=== PATIENT | female | born 1950 ===

== ENCOUNTER 2024-04-20 11:24 | Outpatient (REF) | payer MEDICARE, OTHER, SELFPAY ==
[2024-04-20 11:40] LABS: MANUAL DIFF FLAG NO
[2024-04-20 12:00] LABS: Basophils Percent Auto 0.6 % (0-2); Eosinophils Absolute Auto 0.2 X10*3/uL (0.0-0.4); Eosinophils Percent Auto 3.2 % (0-4); Hematocrit 44.3 % (37.0-47.0); Hemoglobin 15.2 g/dl (12.0-16.0); Imm Gran Abs Auto 0.01 X10*3/uL (0.00-0.03); Imm Gran Pct Auto 0.1 % (0.0-0.4); Lymphocytes Absolute Auto 2.8 X10*3/uL (1.2-4.9); Lymphocytes Percent Auto 40.4 % (20-40); Mean Corpuscular HGB Conc 34.3 g/dl (31.0-35.0); Mean Corpuscular Volume 87.4 fL (80.0-98.0); Mean Platelet Volume 9.4 fL (9.4-12.3); Monocytes Absolute Auto 0.5 X10*3/uL (0.1-1.2); Monocytes Percent Auto 6.9 % (2-11); Neutrophils Absolute Auto 3.4 x10*3/uL (2.0-8.3); Neutrophils Percent Auto 48.8 % (45-73); Platelet Count 235 X10*3/uL (160-400); Red Blood Count 5.07 X10*6/uL (4.20-5.50); Red Cell Distribution Width 13.7 % (11.0-16.0)
[2024-04-20 12:09] LABS: Estimated Average Glucose 140 mg/dL; Hemoglobin A1c % 6.5 % (<6.0)
[2024-04-20 12:42] LABS: Alanine Aminotransferase 15 U/L (0-31); Albumin Level 4.2 g/dL (3.5-5.0); Alkaline Phosphatase 119 U/L (39-117); Anion Gap 14 (12-20); Aspartate Amino Transferase 21 U/L (5-31); Bilirubin Total 0.6 mg/dL (0.0-1.0); Blood Urea Nitrogen 17 mg/dL (9-16); Calcium 9.9 mg/dL (8.4-10.2); Carbon Dioxide 27 mmol/L (22-29); Chloride 106 mmol/L (96-108); Cholesterol 131 mg/dL (<200); Estimated Glomerular Filt Rate 52; Glucose Random 148 mg/dL (60-115); HDL Cholesterol 47 mg/dL (>40); LDL Cholesterol Calculated 62 mg/dL (<100); Potassium 3.8 mmol/L (3.3-5.1); Sodium 143 mmol/L (135-145); Total Protein 7.1 g/dL (6.5-8.0); Triglycerides 113 mg/dL (<150)
[2024-04-20 13:06] LABS: Creatinine Urine 191.33 mg/dL; Microalbum/Creatinine Ratio Ur 13.5 ug/mg cr (<30)
== END 2024-04-20 11:25 | disposition home or self-care (01) ==
LOC: HO.LAB 11:24
PROVIDERS: PCP Internal Medicine; Visit Provider Internal Medicine
DX: Z00.00 Encounter for general adult medical examination without abnormal findings (principal); E11.9 Type 2 diabetes mellitus without complications; Z13.228 Encounter for screening for other metabolic disorders
CPT/HCPCS: 36415; 80053; 80061; 82043; 82570; 83036; 85025

== ENCOUNTER 2024-05-16 14:22 | Outpatient (AMB) | payer MEDICARE, OTHER, SELFPAY ==
--- NOTE | 2024-05-16 14:18 | A.OFFPC_ITS ---
Vital Signs 05/16/24 14:30 Weight 226 lb 4 oz BP 108/64 Blood Pressure Location Lt brachial Position Sitting Respiration 18 Pulse 87 Pulse Source Pulse Oximeter Temp 97.2 F Temp Source Oral Pulse Oximetry (%) 96 Oxygen Delivery Method Room Air Intake Visit Reasons: WEIGHER AND CHARGER Annual PE Req. / A1C F/U Intake Note: New patient visit. A1c 6.5 on 04/20/24 Vulnerability Assessment Analyst Required: No Allergies codeine Allergy (Severe, Verified 05/16/24 14:41) n/v doxycycline Allergy (Unknown, Verified 05/16/24 14:41) Hives nitrofurantoin [From Macrodantin] Allergy (Unknown, Verified 05/16/24 14:41) Hives Penicillins Allergy (Unknown, Verified 05/16/24 14:41) Hives Sulfa (Sulfonamide Antibiotics) Allergy (Unknown, Verified 05/16/24 14:41) Hives tetracycline Allergy (Unknown, Verified 05/16/24 14:41) Unknown bee stings Allergy (Unknown, Uncoded 05/16/24 14:41) Unknown Tobacco use date assessed: 05/16/24 Fall risk assessment: 2 + Falls in past year Last assessed Fall Risk: 05/16/24 Dental Screening Dental Screen Date: 05/16/24 Did you have a dental visit in the last 12 months?: No Did you have a dental problem in the last 6 months where you did not have access to dental care?: No Was dental information given to patient?: Patient has dentist HPI HPI Comments History of Present Illness Details The patient is a 74 year old female with a past medical history of hyperlipidemia, hypertension, diabetes, thyroid nodule, GERD, ?barretts presenting for follow up Diabetes: A1 6.5. Intolerant to metformin, ozempic. Doing well on actos without SE. CV: On imdur, furosemide, amlodipine, atorvastatin. Denies chest pain, palpitations. GI: History of Barretts. Follows GI. Insomnia: On zolpidemi, trazodone. Failed lunesta Ongoing low back pain. +bilateral foot pain. Right shoulder pain following fall. Following with [facility] Colon 3 year 05/18/2024, 08/12-[facility] Medical History (Updated 05/16/24 @ 14:22 by Helga Farrar CMA) Vitamin D deficiency Uninodular goiter Type 2 diabetes mellitus Polyp of sigmoid colon Olecranon bursitis, left elbow Obesity, Class I, BMI 30-34.9 Nicotine dependence Insomnia HTN (hypertension) Hypercholesteremia Gastroesophageal reflux disease Gallstones Fibromyalgia Chronic obstructive lung disease Yo's esophagus Acquired spondylolisthesis Family History (Updated 05/16/24 @ 14:36 by Helga Farrar CMA) Brother Substance use Mother Multiple myeloma TIA (transient ischemic attack) Father TIA (transient ischemic attack) CAD (coronary artery disease) Sister Hepatitis Social History (Updated 05/16/24 @ 14:30 by Helga Farrar CMA) Housing: House Patient Tobacco Use Status: Current someday Tobacco user Tobacco use type: Cigarette Cigarette Packs Per Day: 1 Years Smoked: 30 e-Cigarette/Vaping Use: Never Used Second Hand Smoke Exposure: No Substance Use Type: Marijuana service: Yes Current occupational status: employed and retired Cognitive needs: No Hearing needs: No Vision needs: Yes (glasses) Questionnaire AUDIT C Alcohol Use Questionnaire (AUDIT-C) 1. How often do you have a drink containing alcohol?: Never 3. How often do you have six or more drinks on one occasion?: Never Total Score: 0 Physical exam (Primary Care) Vital Signs: Last Vital Signs Temp 97.2 F 05/16/24 14:30 Pulse 87 05/16/24 14:30 Resp 18 05/16/24 14:30 BP 108/64 05/16/24 14:30 Pulse Ox 96 05/16/24 14:30 Oxygen Delivery Method Room Air 05/16/24 14:30 Tobacco/Smoking Status: Tobacco use Status Tobacco use date assessed 05/16/24 05/16/24 14:41 Patient Tobacco Use Status Current someday Tobacco 05/16/24 14:41 Tobacco use type Cigarette 05/16/24 14:41 e-Cigarette/Vaping Use Never Used 05/16/24 14:41 Assessment and Plan Assessment & Plan Medications: New duloxetine then increase to 60mg daily 30 mg PO DAILY 7 caps 0RF duloxetine 60 mg PO DAILY 90 caps 3RF 90 days loratadine (Claritin) 10 mg PO DAILY 90 tabs 3RF ciprofloxacin HCl (Cipro) 500 mg PO BID 14 tabs 0RF Refilled zolpidem 10 mg PO ONCE 30 tabs 0RF 30 days Coding Level of Care Code Est Pt Level 4 (26509)
[2024-05-16 14:30] VITALS: BP 108/64; PULSE 87; RESP 18; TEMP 36.2; O2SAT 96
== END 2024-05-16 15:31 | disposition home or self-care (01) ==
PROVIDERS: PCP Internal Medicine; Visit Provider Internal Medicine
DX: E11.9 Type 2 diabetes mellitus without complications (principal); G47.00 Insomnia, unspecified; I10 Essential (primary) hypertension
CPT/HCPCS: 99214

== ENCOUNTER 2024-08-25 13:37 | Outpatient (AMB) | payer MEDICARE, OTHER, SELFPAY ==
--- NOTE | 2024-08-25 13:51 | A.OFFPC_ITS ---
Vital Signs 08/25/24 13:56 Height 5 ft 2 in Weight 137 lb 3 oz BMI 25.1 BP 112/70 Blood Pressure Location Lt brachial Position Sitting Pulse 93 Pulse Source Pulse Oximeter Pulse Oximetry (%) 96 Oxygen Delivery Method Room Air Intake Visit Reasons: FOLLOW UP Blood work Intake Note: Follow up blood work. Sleep medicine is not working. Allergies codeine Allergy (Severe, Verified 08/25/24 13:51) n/v doxycycline Allergy (Unknown, Verified 08/25/24 13:51) Hives nitrofurantoin [From Macrodantin] Allergy (Unknown, Verified 08/25/24 13:51) Hives Penicillins Allergy (Unknown, Verified 08/25/24 13:51) Hives Sulfa (Sulfonamide Antibiotics) Allergy (Unknown, Verified 08/25/24 13:51) Hives tetracycline Allergy (Unknown, Verified 08/25/24 13:51) Unknown bee stings Allergy (Unknown, Uncoded 08/25/24 13:51) Unknown Tobacco use date assessed: 05/16/24 Dental Screening Dental Screen Date: 05/16/24 HPI HPI Comments History of Present Illness Details The patient is a 74 year old female with a past medical history of hyperlipidemia, hypertension, diabetes, thyroid nodule, GERD, ?barretts presenting for follow up Diabetes: A1 6.5. Intolerant to metformin, ozempic. Doing well on actos without SE. CV: On imdur, furosemide, amlodipine, atorvastatin. Denies chest pain, palpitations. GI: History of Barretts. Follows [facility]. Insomnia: On zolpidem, trazodone. Failed lunesta Ongoing low back pain. +bilateral foot pain. Right shoulder pain following fall. Following with [facility] Colon 3 year 05/18/2024, 08/12-[facility] Mammo ROS CONSTITUTIONAL: Denies weight loss, fever and chills. HEENT: Denies changes in vision and hearing. RESPIRATORY: Denies SOB and cough. CV: Denies palpitations and CP GI: Denies abdominal pain, nausea, vomiting and diarrhea. : Denies dysuria and urinary frequency. MSK: Denies new myalgia and joint pain. SKIN: Denies rash and pruritus. NEUROLOGICAL: Denies headache PSYCHIATRIC: Denies recent changes in mood. PHYSICAL EXAM: GENERAL: Alert and oriented x 3. NAD EYES: EOMI. Anicteric. HENT: Moist mucous membranes. No scleral icterus. No cervical lymphadenopathy. LUNGS: Clear to auscultation bilaterally. CARDIOVASCULAR: Regular rate and rhythm. No murmur. No JVD. ABDOMEN: Soft, non-tender +bs EXTREMITIES: No edema. Non-tender. SKIN: No rashes or lesions. Warm. NEUROLOGIC: No focal neurological deficits. CN II-XII grossly intact PSYCHIATRIC: Cooperative. Appropriate mood and affect [facility] Medical History (Updated 09/17/24 @ 09:19 by Ranjana Arora MD) Vitamin D deficiency Uninodular goiter Type 2 diabetes mellitus Polyp of sigmoid colon Olecranon bursitis, left elbow Obesity, Class I, BMI 30-34.9 Nicotine dependence Insomnia HTN (hypertension) Hypercholesteremia Gastroesophageal reflux disease Gallstones Fibromyalgia Chronic obstructive lung disease Yo's esophagus Acquired spondylolisthesis Family History (Updated 05/16/24 @ 14:36 by Helga Farrar CMA) Brother Substance use Mother Multiple myeloma TIA (transient ischemic attack) Father TIA (transient ischemic attack) CAD (coronary artery disease) Sister Hepatitis Social History (Updated 05/16/24 @ 14:30 by Helga Farrar CMA) Housing: House Patient Tobacco Use Status: Current someday Tobacco user Tobacco use type: Cigarette Cigarette Packs Per Day: 1 Years Smoked: 30 e-Cigarette/Vaping Use: Never Used Second Hand Smoke Exposure: No Substance Use Type: Marijuana service: Yes Current occupational status: employed and retired Cognitive needs: No Hearing needs: No Vision needs: Yes (glasses) Questionnaire PHQ-9 Over the last 2 weeks, how often have you been bothered by any of the following problems? 1. Little interest or pleasure in doing things: not at all 2. Feeling down, depressed, or hopeless: not at all 3. Trouble falling or staying asleep, or sleeping too much: nearly every day 4. Feeling tired or having little energy: more than half the days 5. Poor appetite or overeating: more than half the days 6. Feeling bad about yourself - or that you are a failure or have let yourself or your family down: not at all 7. Trouble concentrating on things, such as reading the newspaper or watching television: several days 8. Moving or speaking so slowly that other people could have noticed. Or the opposite - being so fidgety or restless that you have been moving around a lot more than usual: not at all 9. Thoughts that you would be better off or of hurting yourself in some way: not at all Total score: 8 Depression Screening Interpretation: Positive Depression Screening Follow-up: Existing condition and Community Mental Health Worker F/U Depression Screening Done: Yes [id number] - PHQ-9 Billing: Yes Source: Developed by Drs. Matthew Peterson, Zoila Cifuentes, Eleuterio Quiros and colleagues, with an educational ely from [employer]. Thrive Questionnaire I am a: Patient What is your living situation today?: I have a steady place to live Within the past 12 months, did the food you bought not last and you didn't have the money to get more?: I choose not to answer this question Within the past 12 months, did you worry whether your food would run out before you got money to buy more?: Never true Do you have trouble paying for medicines?: Yes Do you have trouble getting transportation to medical appointments?: No Do you have trouble paying your heating and electricity bill?: Yes Do you have trouble taking care of your child, family member or friend?: No Do you have trouble with day-to-day activities such as bathing, preparing meals, shopping, managing finances, etc.?: No Are you currently unemployed and looking for a job?: No Are you interested in more education?: No Please select the resources that you would like help with: None Currently or been in a relationship where the following occur: No concerns reported THRIVE Score: 1 AUDIT C Alcohol Use Questionnaire (AUDIT-C) 1. How often do you have a drink containing alcohol?: Never Total Score: 0 KENDRA-7 AMB Questionnaire KENDRA-7 Feeling nervous, anxious, or on edge: 1 = Several days Not being able to stop or control worryin = Several days Worrying too much about different things: 1 = Several days Trouble relaxin = Nearly every day Being so restless that it is hard to sit still: 0 = Not at all Becoming easily annoyed or irritable: 0 = Not at all Feeling afraid as if something awful might happen: 0 = Not at all Total KENDRA-7 score (0-4 normal; 5-9 mild; 10-14 moderate; 15-21 severe): 6 Source: Developed by Drs. Matthew Peterson, Zoila Cifuentes, Eleuterio Quiros and colleagues, with an educational ely from [employer]. Physical exam (Primary Care) Vital Signs: Last Vital Signs Pulse 93 08/25/24 13:56 BP 112/70 08/25/24 13:56 Pulse Ox 96 08/25/24 13:56 Oxygen Delivery Method Room Air 08/25/24 13:56 BMI result Body Mass Index 25.1 Tobacco/Smoking Status: Tobacco use Status Tobacco use date assessed 05/16/24 08/25/24 13:53 Patient Tobacco Use Status Current someday Tobacco 08/25/24 13:53 Tobacco use type Cigarette 08/25/24 13:53 e-Cigarette/Vaping Use Never Used 08/25/24 13:53 PHQ-9: PHQ-9 Score PHQ-9: Total score 8 09/17/24 09:18 Depression Screening Interpretation: Positive Depression Screening Follow-up: Existing condition and Community Mental Health Worker F/U Currently or been in a relationship where the following occur: No concerns reported Coding Level of Care Code Est Pt Level 4 (41754) Diagnoses Type 2 diabetes mellitus without complication, without long-term current use of insulin E11.9 Diabetes mellitus complication status: without complication Diabetes mellitus [facility] insulin use: without [facility] use Diabetes mellitus type: type 2 Primary insomnia F51.01 Insomnia type: primary Assessment & Plan Assessment & Plan (1) Diabetes: Code(s): E11.9 - Type 2 diabetes mellitus without complications Category: Medical Qualifiers: Diabetes mellitus complication status: without complication Diabetes mellitus [facility] insulin use: without terminal computer operator use Diabetes mellitus type: type 2 Qualified Code(s): E11.9 - Type 2 diabetes mellitus without complications Plan: Well controlled on current medications. Continue annual eye exams. (2) Insomnia: Code(s): G47.00 - Insomnia, unspecified Category: Medical Qualifiers: Insomnia type: primary Qualified Code(s): F51.01 - Primary insomnia Plan: continue current medications Orders: Orders Hemoglobin A1c 08/25/24 E11.9 - Type 2 diabetes mellitus without complications Comprehensive Met. Panel 08/25/24 E11.9 - Type 2 diabetes mellitus without c omplications Lipid Panel 08/25/24 E11.9 - Type 2 diabetes mellitus without complications TSH reflex Free T4 08/25/24 E11.9 - Type 2 diabetes mellitus without complications Medications: New zolpidem (Ambien) USE good RX if not covered by insurance without [place] [id number] [facility] [id number] Member [id number] 10 mg PO BEDTIME PRN 30 tabs 0RF sleep Discontinued doxepin Discontinued Reason: Doctor's Order 6 mg PO BEDTIME PRN 90 tabs 3RF sleep
[2024-08-25 13:56] VITALS: BP 112/70; PULSE 93; O2SAT 96; BMI 25.1
== END 2024-08-25 14:22 | disposition home or self-care (01) ==
PROVIDERS: PCP Internal Medicine; Visit Provider Internal Medicine
DX: E11.9 Type 2 diabetes mellitus without complications (principal); F51.01 Primary insomnia

== ENCOUNTER → 2024-08-25 13:37 | Outpatient (BNVA) | payer MEDICARE, OTHER, SELFPAY | PROVIDERS: PCP Internal Medicine; Visit Provider Internal Medicine | DX: E11.9 Type 2 diabetes mellitus without complications (principal); F51.01 Primary insomnia; I10 Essential (primary) hypertension; E78.5 Hyperlipidemia, unspecified; Z79.899 Other long term (current) drug therapy | CPT/HCPCS: 99212 ==

== ENCOUNTER 2024-12-26 10:56 | Outpatient (REF) | payer MEDICARE, OTHER, SELFPAY ==
--- OUTSIDE RECORDS SUMMARY | 2024-12-26 11:52 | XMS_ITS | Clinical Summary ---
Author Organization [facility] Address [address] [place] [address] Care Team Providers Care Outside Salesperson Name Role Phone Ranjana Arora MD Primary Care Provider [phone] Surgical History Surgery Date Site/Laterality Comments APPENDECTOMY 1974 PROCEDURE: HISTORICAL APPENDECTOMY KNEE ARTHROSCOPY W/ DEBRIDEMENT PROCEDURE: MN ARTHRS KNEE DEBRIDEMENT/SHAVING ARTCLR CRTLG; COMMENT: 2 surgeries, right TUBAL LIGATION 1991 PROCEDURE: HISTORICAL TUBAL LIGATION OTHER SURGICAL HISTORY PROCEDURE: CHG ANGRPH CATH F-UP STD TCAT OTHER THAN THROMBYLSIS OTHER SURGICAL HISTORY PROCEDURE: [place] CAUTERY CERVIX CRYOCAUTERY INITIAL/REPEAT; COMMENT: in her 22 s Medical History Medical History Date Comments Generalized osteoarthrosis, involving hand 10/11/2006 DX:Generalized osteoarthrosi s, involving hand; COMMENT: hands, knees Chest pain, unspecified 10/28/2006 DX:Chest pain, unspecified; COMMENT: EST with Dr rCews with chest pressure at maximal exertion at 78% max pred hr with nl perfusion imaging and nl lv function and EF greater than 75% Essential hypertension, benign 10/11/2006 D X:Essential hypertension, benign Obstructive chronic bronchit is without exacerbation (CMS/HCC) 10/11/2006 DX:Obstructive chronic bronchitis without exacerbation (HCC); COMMENT: smokes 1ppd for 20 years, inhalers occasionally when has infection Tobacco use disorder DX:Tobacco use disorder Pure hypercholesterolemia 11/23/2006 DX:Pur e hypercholesterolemia Diaphragmatic hernia without mention of obstruction or gangrene 02/02/2007 DX:Diaphragmatic hernia wit hout mention of obstruction or gangrene Fibromyalgia 2001 DX:Fibromyalgia; COMMENT: had allergic reaction to Lyrica Other specified personal his tory presenting hazards to health(V15.89) DX:Other specifie d personal history presenting hazards to health(V15.89) Family History Medical History Relation Name Comments Stroke Father Relation Name Status Comments Father (Age 54) cva, pvd,c ig Maternal Grandfather cancer, unknown Maternal Grandmother Mother (Age 72) multiple m yeloma, Paternal Grandfather Paternal Grandmother Uncle pancreatic canc er Social History Tobacco Use Types Packs/Day Years Used Date Smoking Tobacco: Every Day Cigarettes Smokeless Tobacco: Never Alcohol Use Standard Drinks/Week Comments No 0 (1 standard drink = 0.6 oz pur e alcohol) Sex and Gender Information Value Date Recorded Sex Assigned at Not on file Gender Identity Not on file Sexual Orientation Not on file Obstetrics History Plan of Treatment Health Maintenance Due Date Last Done Comments Breast Cancer Screening 1950 DTaP,Tdap,and Td Vaccines (1 - Tdap) 1971 Zoster Vaccines (1 of 2) 2002 Pneumococcal Vaccine: 65+ Years (1 of 1 - PCV) 2017 COVID-19 Vaccine ( - 2023-2 5 season) 2024 Influenza Vaccine (#1) 2024 7, 10/11/2006 RSV Immunization Patients 60 + Years Old (1 - 1-dose 75+ series) 2027 HIB Vaccines Aged Out No longer eligi ble based on patient's age to complete this topic HPV Vaccines Aged Out No longer eligi ble based on patient's age to complete this topic Hepatitis A Vaccines Aged Out No long er eligible based on patient's age to complete this topic Hepatitis B Vaccines Aged Out No long er eligible based on patient's age to complete this topic IPV Vaccines Aged Out No longer eligi ble based on patient's age to complete this topic MMR Vaccines Aged Out No longer eligi ble based on patient's age to complete this topic Meningococcal ACWY Vaccine Aged Out N o longer eligible based on patient's age to complete this topic RSV Immunization Patients Under 20 months Aged Out No longer eligible b ased on patient's age to complete this topic Varicella Vaccines Aged Out No longer eligible based on patient's age to complete this topic Care Teams Outside Salesperson Relationship Specialty Start Date End Date Ranjana Arora MD PCP - General 06/28/23
[2024-12-26 11:53] LABS: Estimated Average Glucose 163 mg/dL; Hemoglobin A1C 232.4037 umol/L; Hemoglobin A1c % 7.3 % (<6.0); Total Hemoglobin (HGBA1C) 4113.8562 umol/L
[2024-12-26 12:35] LABS: Alanine Aminotransferase 17 U/L (0-31); Albumin Level 4.2 g/dL (3.5-5.0); Alkaline Phosphatase 133 U/L (39-117); Anion Gap 16 (12-20); Aspartate Amino Transferase 26 U/L (5-31); Bilirubin Total 0.7 mg/dL (0.0-1.0); Blood Urea Nitrogen 15 mg/dL (9-16); Calcium 8.8 mg/dL (8.4-10.2); Carbon Dioxide 30 mmol/L (22-29); Chloride 100 mmol/L (96-108); Cholesterol 134 mg/dL (<200); Estimated Glomerular Filt Rate 56; Glucose Random 139 mg/dL (60-115); HDL Cholesterol 41 mg/dL (>40); LDL Cholesterol Calculated 66 mg/dL (<100); Potassium 3.2 mmol/L (3.3-5.1); Sodium 143 mmol/L (135-145); Total Protein 7.4 g/dL (6.5-8.0); Triglycerides 138 mg/dL (<150)
[2024-12-26 12:53] LABS: TSH reflex Free T4 1.04 uIU/mL (0.32-4.0)
== END 2024-12-26 10:57 | disposition home or self-care (01) ==
LOC: HO.LAB 10:56
PROVIDERS: PCP Internal Medicine; Visit Provider Internal Medicine
DX: E11.9 Type 2 diabetes mellitus without complications (principal)
CPT/HCPCS: 36415; 80053; 80061; 83036; 84443

== ENCOUNTER → 2024-12-29 13:39 | Outpatient (BNVA) | payer MEDICARE, OTHER, SELFPAY | PROVIDERS: PCP Internal Medicine; Visit Provider Internal Medicine | DX: E11.65 Type 2 diabetes mellitus with hyperglycemia (principal); F51.01 Primary insomnia | CPT/HCPCS: 96127; 99212 ==

== ENCOUNTER 2025-04-02 10:13 | Outpatient (REF) | payer MEDICARE, OTHER, SELFPAY ==
--- OUTSIDE RECORDS SUMMARY | 2025-04-02 10:44 | XMS_ITS | Data Portability ---
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 Plan of Treatment Reminders Order Date Submit Date Provider Last Modified By Organization Details Last Modified Time Details Appointments None recorded. Lab None recorded. Referral None recorded. Procedures None recorded. Surgeries None recorded. Imaging US, duplex, venous, lower extremity - r/o DVT ?ruptured bakers cyst 2023 024 cstamand [facility] [place], [address], [place], [address], 10:24:40 Medication Orders None recorded. Patient TargetsNo targets recorded. Patient InstructionsNo instructions recorded. Reason for Referral None Reported. Results Created Date Observation Date Name Description Value Unit Range Abnormal Flag Note LastModifiedBy Organization Detail LastModifiedTime 07/21/20 24 06/11/2023 imagi ng/di agnos tic resul t No observ ation record ed. [email or web address] Not Available 06/24 02:27:56 07/21/20 24 01/21/2024 imagi ng/di agnos tic resul t No observ ation record ed. [email or web address] Not Available 06/24 02:28:05 Result Notes None recorded. Problems Name Problem SNOMED Code Status Onset Date Resolution Date Notes Provider Name and Address Organization Details Recorded Time No complaints 141621464 Active Status: 'I'; Not Available [facility] 4 09:12:46 Idiopathic osteoarthri tis 410748236 Active 2016 Problem Code: M18.12; Problem Code Type: ICD-10; Status: 'A'; Not Available [facility] 10:56:47 Problem Notes None recorded. Procedures Surgical History Date Name Laterality Status Provider Name and Address Organization Details Recorded Time 4 TriVisc Knee Injection completed Samir Galvez PA-C [address], [place], [address], [facility] 03/02/2024 08:50:14 4 TriVisc Knee Injection completed Samir Galvez PA-C [address], [place], [address], [facility] 02/24/2024 08:02:48 4 TriVisc Knee Injection completed Samir aGlvez PA-C [address], [place], [address], [facility] 02/17/2024 06:33:00 Imaging Results Imaging Date Name Status LastModified by Organiz ation Details LastModified Time 06/11/2023 imaging/diag nostic result completed Information not available 07/21/2024 02:27:56 01/21/2024 imaging/diag nostic result completed Information not available 07/21/2024 02:28:05 Procedure Notes None recorded. Medical Equipment None Reported. Allergies Allergen ID Allergen Name Allergen Category Reaction Reaction Severity Criticality Documentation Date Start Date Code Code System Note Provider Name and Address Organization Details Recorded Time 838374 tetracycl ine hydrochlo ride medicatio n Not available Not available Not available 01/24/20242006 81075 6 RxNorm Aller gyRea ction : 'Skin React ion'; Not Available [facility] 15:27:02 503558 Product containin g penicilli n (product) medicatio n Not available Not available Not available 02/17/2024 44108 8001 SNOMED KAYLIA L'HEUREUX [facility] 13:48:49 570235 Substance with sulfonami de structure and antibacte rial mechanism of action (substanc e) medicatio n Not available Not available Not available 02/17/2024 89167 8003 SNOMED KAYLIA L'HEUREUX [facility], [facility] 13:48:58 245187 codeine medicatio n Not available Not available Not available 02/17/2024 2670 RxNorm HAMMADYLDAVID L'HEUREUX [facility], [facility] 13:49:16 Medications Name Sig Start Date Stop Date Status Note LastModified by Organization Details LastModified Time furosemide 40 mg tablet TAKE 1 TABLET BY MOUTH EVERY DAY active Not Available Not Available No t Available atorvastati n 80 mg tablet TAKE 1 TABLET BY MOUTH EVERY DAY AT BEDTIME active Not Available Not Available No t Available albuterol sulfate 2.5 mg/3 mL (0.083 %) solution for nebulizatio n INHALE 1 VIAL VIA NEBULIZER EVERY 4 HOURS NEEDED FOR WHEEZING OR SHORTNESS OF BREATH active Not Available Not Available No t Available prednisone 20 mg tablet TAKE 2 TABLETS BY MOUTH EVERY DAY FOR 5 DAYS 02/16 completed Not Available Not Available Not Available isosorbide mononitrate ER 30 mg tablet,exte nded release 24 hr TAKE 1 TABLET BY MOUTH EVERY DAY active Not Available Not Available No t Available amlodipine 5 mg tablet TAKE 1 TABLET BY MOUTH EVERY DAY active Not Available Not Available No t Available omeprazole 40 mg capsule,del ayed release TAKE 1 CAPSULE BY MOUTH TWICE A DAY DIRECTED active Not Available Not Available No t Available prednisolon e acetate 1 % eye drops,suspe nsion INSTILL 1 DROP INTO THE LEFT EYE 4 TIMES DAILY. USE FOR ONE WEEK. 02/16 completed Not Available Not Available Not Available trazodone 150 mg tablet TAKE 1 TABLET BY MOUTH EVERYDAY AT BEDTIME active Not Available Not Available No t Available hydroxyzine HCl 25 mg tablet TAKE 1 TABLET BY MOUTH DAILY NEEDED NEEDED HIVES active Not Available Not Available No t Available zolpidem 5 mg tablet TAKE 1 TABLET BY MOUTH DAILY AT BEDTIME NEEDED FOR INSOMNIA active Not Available Not Available No t Available levofloxaci n 750 mg tablet TAKE 1 TABLET BY MOUTH EVERY 24 HOURS FOR 7 DAYS 02/16 completed Not Available Not Available Not Available zolpidem 10 mg tablet TAKE 1 TABLET BY MOUTH DAILY AT BEDTIME NEEDED FOR INSOMNIA active Not Available Not Available No t Available pioglitazon e 30 mg tablet TAKE 1 TABLET BY MOUTH EVERY DAY active Not Available Not Available No t Available metformin ER 500 mg tablet,exte nded release 24 hr TAKE 2 TABLETS BY MOUTH EVERY DAY 02/16 completed Not Available Not Available Not Available clotrimazol e 1 % topical cream APPLY TOPICALLY TO AFFECTED AREA TWICE A DAY active Not Available Not Available No t Available duloxetine 60 mg capsule,del ayed release TAKE 1 CAPSULE BY MOUTH EVERY DAY active Not Available Not Available No t Available Percocet 1 tab po tid prn pain 02/16 completed Statu s: 'Curr ent'; Not Available Not Available Not Available temazepam Temazepam 30MG Capsule 02/16 completed Statu s: 'Curr ent'; Not Available Not Available Not Available oxycodone HCl-oxycodo ne-ASA take a 1/2 tablet every [address] for painDO NOT DRIVE WHILE TAKING THIS MEDICATIO N 02/26 completed Statu s: 'Disc ontin ued'; Not Available Not Available Not Available Ozempic 0.25 mg or 0.5 mg (2 mg/3 mL) subcutaneou s pen injector INJECT 0.5 MG SUBCUTANE OUSLY EVERY 7 DAYS 02/16 completed Not Available Not Available Not Available Vitals Date Recorded Body height Body mass index (BMI) Body weight Provider Name and Address Organization Details Last Updated DateTime 02/17/2024 157.48 cm 36.6 kg/m2 75716.47 g JARADIA L'HEUREUX [facility] 02/17/2024 13:48:16 Date Recorded Body height Body mass index (BMI) Body weight Provider Name and Address Organization Details Last Updated DateTime 02/24/2024 157.48 cm 36.6 kg/m2 88860.47 g BRYAN L'HEUREUX [facility] 02/24/2024 13:24:55 Date Recorded Body height Body mass index (BMI) Body weight Provider Name and Address Organization Details Last Updated DateTime 03/02/2024 157.48 cm 36.6 kg/m2 12315.47 g Samir Galvez PA-C [address], [place], [address], [place] [facility] 03/02/2024 13:33:07 Social History Question Answer Notes LastModified by Organizat ion Details LastModified Time Tobacco Smoking Status Current Every Day Smoker BRYAN PEREZ madyson [place] [facility] [place] 02/17/2024 13:51:41 What Is Your Relationship Status? Information not available 02/17/2024 How Much Tobacco Do You Smoke? 1 PPD Information not available 02/17/2024 Sex: Unknown Functional Status Question Answer Note LastModified by Organizat ion Details LastModified Time Do you use any illicit or recreational drugs? No Information not available 02/17/2024 Do you or have you ever used any other forms of tobacco or nicotine? No Information not available 02/17/2024 What is your level of alcohol consumption? None Information not available 02/17/2024 Mental Status None recorded. Family History Nothing Reported. Medical History Condition Response Allergies/Hayfever N Coronary Artery Disease N Anxiety/Depression N Emphysema N Thyroid Problems N COPD N Pacemaker N Anemia N Kidney/Bladder Problems N Vascular Disease N Heart Attack (PR) N Gastrointestinal Disease N Diabetes Y Autoimmune disease N Bleeding Disorder N Orthotics N Arthritis Y Seizures/Epilepsy N Blood Clot N AIDS/HIV N Congestive Heart Failure (CHF) N Acid Reflux (GERD) N Cancer N Stroke N Asthma N Peripheral Vascular Disease N Sleep Apnea Y Hepatitis N Heart Disease N Rheumatoid Arthritis N Arrhythmia N Pulmonary Embolism N Fibromyalgia N Hypertension Y Osteoporosis N Gynecological HistoryNo gynecological history recorded. Obstetrics History GPAL:G 0 P 0 0 0 0 Past Encounters Encounter ID Performer Location Encounter Start Date Encounter Closed Date Diagnosis/Indication Diagnosis SNOMED-CT Code Diagnosis ICD10 Code Diagnosis Note [id number] NADIRA Velez [address] [place] [address] 02/17/2024 13:29:38 02/17/2024 14:18:42 Osteoarthritis of right knee joint 1856412057 75723 M17.11 [id number] NADIRA Velez [address] [place] [address] 02/24/2024 13:07:33 02/24/2024 13:43:51 Osteoarthritis of right knee joint 2831320792 89320 M17.11 [id number] NADIRA Velez [address] [place] [address] 03/02/2024 13:25:19 03/23/2024 10:24:40 Osteoarthritis of right knee joint 7325805989 24238 M17.11 Health Concerns Section Related Observation LastModified by Organization Detai ls LastModified Time None Recorded Concern Status LastModified by Organization Details LastModified Time None Recorded Advance Directives Directive None Recorded Payers Encounter Date Sequence Insurance Name Policy Number Policy Garduno Covered Member ID Garduno Member ID Guarantor Name 02/17/2024 2 [facility] 1 (MEDICARE SUPPLEMENT) [id number] Maddy A A Diane [id number] Maddy A Diane 02/17/2024 1 [place] Maddy A Diane [id number] Maddy A Diane 02/24/2024 2 [facility] - PLAN 1 (MEDICARE SUPPLEMENT) [id number] Maddy A A Diane [id number] Maddy A Diane 02/24/2024 1 [place] Maddy A Diane [id number] Maddy A Diane 03/02/2024 2 [facility] - PLAN 1 (MEDICARE SUPPLEMENT) [id number] Maddy A A Diane [id number] Maddy A Diane 03/02/2024 1 [place] Maddy A Diane [id number] Maddy A Diane Notes Date Note Type Note Provider Name and Address Organization Details Recorded Time 02/17/2024 text/html I am seeing the patient today under the supervision of Dr. Sanders who is available but did not see the patient Samir Galvez PA-C [address], [place], [address], [place] [facility] 02/17/2024 13:56:20 02/24/2024 text/html I am seeing the patient today under the supervision of {{ Dr. Sanders#}} who was available but who did not see the patient. Samir Galvez PA-C [address] [facility], [place], [address], [facility] 02/24/2024 13:37:10 03/02/2024 text/html I am seeing the patient today under the supervision of Dr. Sanders who was available but did not see the patient. Samir Galvez PA-C [address], [place], [address], [facility] 03/02/2024 13:49:09 OBGyn Episode No OBEpisode recorded.
[2025-04-02 11:36] LABS: Estimated Average Glucose 169 mg/dL; Hemoglobin A1C 236.1796 umol/L; Hemoglobin A1c % 7.5 % (<6.0); Total Hemoglobin (HGBA1C) 4054.8576 umol/L
[2025-04-02 11:57] LABS: Alanine Aminotransferase 14 U/L (0-31); Albumin Level 4.2 g/dL (3.5-5.0); Anion Gap 13 (12-20); Aspartate Amino Transferase 25 U/L (5-31); Bilirubin Total 0.6 mg/dL (0.0-1.0); Blood Urea Nitrogen 9 mg/dL (9-16); Calcium 9.3 mg/dL (8.4-10.2); Carbon Dioxide 25 mmol/L (22-29); Chloride 106 mmol/L (96-108); Estimated Glomerular Filt Rate > 60; Glucose Random 172 mg/dL (60-115); Potassium 3.7 mmol/L (3.3-5.1); Sodium 140 mmol/L (135-145); Total Protein 7.1 g/dL (6.5-8.0)
[2025-04-02 12:22] LABS: Creatinine Urine 143.92 mg/dL; Microalbum/Creatinine Ratio Ur 27.7 ug/mg cr (<30)
[2025-04-02 12:23] LABS: Alkaline Phosphatase 134 U/L (39-117)
== END 2025-04-02 10:14 | disposition home or self-care (01) ==
LOC: HO.LAB 10:13
PROVIDERS: PCP Internal Medicine; Visit Provider Internal Medicine
DX: E11.9 Type 2 diabetes mellitus without complications (principal)
CPT/HCPCS: 36415; 80053; 82043; 82570; 83036

== ENCOUNTER 2025-04-03 13:05 | Outpatient (AMB) | payer MEDICARE, OTHER, SELFPAY ==
--- NOTE | 2025-04-03 13:20 | MHC.PC.OV ---
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 Security Administrator Required: No Allergies codeine Allergy (Severe, Verified 04/03/25 13:20) n/v doxycycline Allergy (Unknown, Verified 04/03/25 13:20) Hives nitrofurantoin [From Macrodantin] Allergy (Unknown, Verified 04/03/25 13:20) Hives Penicillins Allergy (Unknown, Verified 04/03/25 13:20) Hives Sulfa (Sulfonamide Antibiotics) Allergy (Unknown, Verified 04/03/25 13:20) Hives tetracycline Allergy (Unknown, Verified 04/03/25 13:20) Unknown bee stings Allergy (Unknown, Uncoded 04/03/25 13:20) Unknown Medication List - Last Reconciled 04/03/25 by Ranjana Arora MD amlodipine 5 mg PO DAILY atorvastatin 80 mg PO DAILY duloxetine 60 mg PO DAILY 90 days furosemide 40 mg PO DAILY glipizide ER 5 mg PO DAILY hydroxyzine HCl 25 mg PO DAILY PRN isosorbide mononitrate ER 30 mg PO DAILY levofloxacin 750 mg PO DAILY omeprazole 40 mg PO BID pioglitazone TAKE 1 TABLET BY MOUTH EVERY DAY potassium chloride ER 20 mEq PO DAILY prednisone 40 mg (2 x 20 mg) PO DAILY temazepam 15 mg PO BEDTIME PRN Tobacco use date assessed: 04/03/25 Fall risk assessment: 1 Fall in past year Last assessed Fall Risk: 04/03/25 Dental Screening Dental Screen Date: 04/03/25 Did you have a dental visit in the last 12 months?: No Did you have a dental problem in the last 6 months where you did not have access to dental care?: No Was dental information given to patient?: Patient has dentist HPI HPI Comments History of Present Illness Details The patient is a 74 year old female with a past medical history of hyperlipidemia, hypertension, diabetes, thyroid nodule, GERD, ?barretts presenting for follow up Diabetes: A1 7.5 from 7.3%. On actos. Endorses dietary indiscretion. Intolerant to metformin, ozempic. CV: On imdur, furosemide, amlodipine, atorvastatin. Denies chest pain, palpitations. GI: History of Barretts. Follows [facility]. Insomnia: Ongoing. zolpidem was working seems to have stopped working. Has tried trazodone. Failed lunesta Ongoing low back pain. +bilateral foot pain. Right shoulder pain following fall. Following with [facility]. Stable Endorses one week of wheezing cough, consistent with prior bronchitis. Colon 3 year 05/18/2024, 08/12-[facility] Mammo ROS see HPI PHYSICAL EXAM: GENERAL: Alert and oriented x 3. NAD EYES: EOMI. Anicteric. HENT: Moist mucous membranes. No scleral icterus. No cervical lymphadenopathy. LUNGS: Bilateral scattered wheeze CARDIOVASCULAR: Regular rate and rhythm. No murmur. No JVD. ABDOMEN: Soft, non-tender +bs EXTREMITIES: No edema. Non-tender. SKIN: No rashes or lesions. Warm. NEUROLOGIC: No focal neurological deficits. CN II-XII grossly intact PSYCHIATRIC: Cooperative. 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 Acquired spondylolisthesis Family History Brother Substance use Mother Multiple myeloma TIA (transient ischemic attack) Father TIA (transient ischemic attack) CAD (coronary artery disease) Sister Hepatitis Social History (Updated 04/03/25 @ 13:26 by Helga Farrar CMA) Housing: House Alcohol intake: never Patient Tobacco Use Status: Current someday Tobacco user Tobacco use type: Cigarette Cigarette Packs Per Day: 0.5 Years Smoked: 30 e-Cigarette/Vaping Use: Never Used Second Hand Smoke Exposure: No Substance Use Type: Marijuana service: Yes Current occupational status: employed and retired Cognitive needs: No Hearing needs: No Vision needs: Yes (glasses) Questionnaire PHQ-9 Over the last 2 weeks, how often have you been bothered by any of the following problems? 1. Little interest or pleasure in doing things: several days 2. Feeling down, depressed, or hopeless: several days Source: Developed by Drs. Matthew Peterson, Eleuterio Chicas and colleagues, with an educational ely from [employer]. Thrive Questionnaire Date Thrive assessed: 12/26/24 I am a: Patient What is your living situation today?: I have a steady place to live Within the past 12 months, did the food you bought not last and you didn't have the money to get more?: Never true Within the past 12 months, did you worry whether your food would run out before you got money to buy more?: Never true Do you have trouble paying for medicines?: Yes Do you have trouble getting transportation to medical appointments?: No Do you have trouble paying your heating and electricity bill?: No Do you have trouble taking care of your child, family member or friend?: No Do you have trouble with day-to-day activities such as bathing, preparing meals, shopping, managing finances, etc.?: Yes Are you currently unemployed and looking for a job?: No Are you interested in more education?: No Please select the resources that you would like help with: Paying for medicine Currently or been in a relationship where the following occur: No concerns reported THRIVE Score: 0 AUDIT C Alcohol Use Questionnaire (AUDIT-C) 1. How often do you have a drink containing alcohol?: Never 3. How often do you have six or more drinks on one occasion?: Never Total Score: 0 KENDRA-7 AMB Questionnaire KENDRA-7 Date KENDRA - 7 assessed: 12/29/24 Source: Developed by Drs. Matthew Peterson, Zoila Cifuentes, Eleuterio Quiros and colleagues, with an educational ely from [employer]. Physical exam (Primary Care) Vital Signs: Last Vital Signs Pulse 89 04/03/25 13:23 Resp 22 H 04/03/25 13:23 BP 104/74 04/03/25 13:23 Pulse Ox 94 04/03/25 13:23 Oxygen Delivery Method Room Air 04/03/25 13:23 BMI result Body Mass Index 42.3 Tobacco/Smoking Status: Tobacco use Status Tobacco use date assessed 12/29/24 12/29/24 14:07 Patient Tobacco Use Status Current someday Tobacco 04/03/25 13:26 Tobacco use type Cigarette 04/03/25 13:26 e-Cigarette/Vaping Use Never Used 04/03/25 13:26 Thrive Assessment: Date of Thrive Assessment Date Thrive assessed 12/26/24 12/29/24 14:01 Currently or been in a relationship where the following occur: No concerns reported Coding Level of Care Code Est Pt Level 4 (31927) Complex EM visit Add On G2211 Diagnoses Respiratory infection J98.8 Primary hypertension I10 Hypertension type: primary hypertension Primary insomnia F51.01 Insomnia type: primary Type 2 diabetes mellitus with hyperglycemia, without long-term current use of insulin 65 Diabetes mellitus type: type 2 Diabetes mellitus nursing home insulin use: without cook pickled meat use Diabetes mellitus complication status: with hyperglycemia Assessment & Plan Assessment & Plan (1) Respiratory infection: Code(s): J98.8 - Other specified respiratory disorders Category: Medical (2) HTN (hypertension): Code(s): I10 - Essential (primary) hypertension Category: Medical Qualifiers: Hypertension type: primary hypertension Qualified Code(s): I10 - Essential (primary) hypertension (3) Insomnia: Code(s): G47.00 - Insomnia, unspecified Category: Medical Qualifiers: Insomnia type: primary Qualified Code(s): F51.01 - Primary insomnia (4) Diabetes: Code(s): E11.9 - Type 2 diabetes mellitus without complications Category: Medical Qualifiers: Diabetes mellitus type: type 2 Diabetes mellitus nursing home insulin use: without cook pickled meat use Diabetes mellitus complication status: with hyperglycemia Qualified Code(s): E11.65 - Type 2 diabetes mellitus with hyperglycemia Plan Diabetes-suboptimal control. Add glipizide HTN-adequate control Bronchitis/PNA-levaquin and steroid sent Insomnia-multiple med trials. zolpidem worked but insurance would not cover. Orders: Orders Hemoglobin A1c 3 Months - Type 2 diabetes mellitus with hyperglycemia Complete Blood Count Auto Diff 3 Months .65 - Type 2 diabetes mellitus with hyperglycemia Comprehensive Met. Panel 3 Months - Type 2 diabetes mellitus with hyperglycemia Medications: New temazepam 15 mg PO BEDTIME PRN 90 caps 1RF sleep levofloxacin 750 mg PO DAILY 5 tabs 0RF glipizide ER 5 mg PO DAILY 90 tabs 3RF prednisone 40 mg (2 x 20 mg) PO DAILY 10 tabs 0RF Discontinued doxepin Discontinued Reason: Doctor's Order 25 mg PO BEDTIME 90 caps 3RF
[2025-04-03 13:23] VITALS: BP 104/74; PULSE 89; RESP 22; O2SAT 94; BMI 42.3
--- OUTSIDE RECORDS SUMMARY | 2025-04-03 14:07 | XMS_ITS | Clinical Summary ---
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 Name Role Phone Ranjana Arora MD Primary Care Provider [phone] Surgical History Surgery Date Site/Laterality Comments APPENDECTOMY 1974 PROCEDURE: HISTORICAL APPENDECTOMY KNEE ARTHROSCOPY W/ DEBRIDEMENT PROCEDURE: PA ARTHRS KNEE DEBRIDEMENT/SHAVING ARTCLR CRTLG; COMMENT: 2 surgeries, right TUBAL LIGATION 1991 PROCEDURE: HISTORICAL TUBAL LIGATION OTHER SURGICAL HISTORY PROCEDURE: CHG ANGRPH CATH F-UP STD TCAT OTHER THAN THROMBYLSIS OTHER SURGICAL HISTORY PROCEDURE: PA CAUTERY CERVIX CRYOCAUTERY INITIAL/REPEAT; COMMENT: in her 22 s Medical History Medical History Date Comments Generalized osteoarthrosis, involving hand 10/11/2006 DX:Generalized osteoarthrosi s, involving hand; COMMENT: hands, knees Chest pain, unspecified 10/28/2006 DX:Chest pain, unspecified; COMMENT: EST with Dr Crews with chest pressure at maximal exertion at 78% max pred hr with nl perfusion imaging and nl lv function and EF greater than 75% Essential hypertension, benign 10/11/2006 D X:Essential hypertension, benign Obstructive chronic bronchit is without exacerbation (CMS/HCC V24, CMS/HCC V28) 10/11/2006 DX:Obstructive chronic bronc hitis without exacerbation ([facility]); COMMENT: smokes 1ppd for 20 years, inhalers [...] drink = 0.6 oz pur e alcohol) Comments Unknown Sex and Gender Information Value Date Recorded Sex Assigned at Not on file Legal Sex Female 6:41 PM EST Gender Identity Not on file Sexual Orientation Not on file Obstetrics History Plan of Treatment Health Maintenance Due Date Last Done Comments Breast Cancer Screening 1950 DTaP,Tdap,and Td Vaccines (1 - Tdap) 1971 Pneumococcal Vaccine: 50+ Years (1 of 1 - PCV) 2002 Zoster Vaccines (1 of 2) 2002 COVID-19 Vaccine ( - 2023-2 5 season) 2024 Influenza Vaccine (Season Ended) 2025 08/25/2007, 10/11/2006 RSV Immunization Adult Patients (1 - 1-dose 75+ series) 2027 HIB [...] patient's age to complete this topic Meningococcal B Vaccine Aged Out No l onger eligible based on patient's age to complete this topic RSV Immunization Patients Under 20 months Aged Out No longer eligible b ased on patient's age to complete this topic Varicella Vaccines Aged Out No longer eligible based on patient's age to complete this topic Care Teams Electric Motor Repairman Relationship Specialty Start Date End Date Ranjana Arora MD PCP - General 06/28/23
--- OUTSIDE RECORDS SUMMARY | 2025-04-03 14:07 | XMS_ITS | Data Portability ---
Author Organization [facility], [facility] Address [address] [place] [address] Care Team Providers Care Director Of Physician Practices Name Role Phone GeetaDANNY LOPEZ Primary Care Provider Assessment No assessment recorded. Plan of Treatment Reminders Order Date Submit Date Provider Last Modified By Organization Details Last Modified Time Details Appointments None recorded. Lab None recorded. Referral None recorded. Procedures None recorded. Surgeries None recorded. Imaging US, duplex, venous, lower extremity - r/o DVT ?ruptured bakers cyst 2023 024 cstamand [facility] [place], [address] [facility], [place], [address], 10:24:40 Medication Orders None recorded. Patient TargetsNo [...] Address Organization Details Recorded Time No complaints [id number] Active Status: 'I'; Not Available [employer] 4 09:12:46 Idiopathic osteoarthri tis 063362694 Active 2016 Problem Code: M18.12; Problem Code Type: ICD-10; Status: 'A'; Not Available [facility] 10:56:47 Problem Notes None recorded. Procedures Surgical History Date Name Laterality Status Provider Name and Address Organization Details Recorded Time 4 TriVisc Knee Injection completed Samir Galvez PA-C [address], [place], [address], [facility] 03/02/2024 08:50:14 4 TriVisc Knee Injection completed Samir Galvez PA-C [address], [place], [address], [facility] 02/24/2024 08:02:48 4 TriVisc Knee Injection completed Samir Galvez PA-C [address], [place], [address], [facility] 02/17/2024 06:33:00 Imaging Results Imaging Date Name [...] Name and Address Organization Details Recorded Time 049646 tetracycl ine hydrochlo ride medicatio n Not available Not available Not available 01/24/20242006 18993 6 RxNorm Aller gyRea ction : 'Skin React ion'; Not Available [facility] 15:27:02 220031 Product containin g penicilli n (product) medicatio n Not available Not available Not available 02/17/2024 63002 8001 SNOMED KAYLIA L'HEUREUX [facility] 13:48:49 114740 Substance with sulfonami de structure and antibacte rial mechanism of action (substanc e) medicatio n Not available Not available Not available 02/17/2024 95222 8003 SNOMED KAYLIA L'HEUREUX [facility], [facility] 13:48:58 775104 codeine medicatio n Not available Not available Not available 02/17/2024 2670 RxNorm HAMMADYLDAVID L'HEUREUX [facility], [facility] 13:49:16 Medications Name Sig Start Date Stop [...] Updated DateTime 02/17/2024 157.48 cm 36.6 kg/m2 15710.47 g JARADIA L'HEUREUX [facility] 02/17/2024 13:48:16 Date Recorded Body height Body mass index (BMI) Body weight Provider Name and Address Organization Details Last Updated DateTime 02/24/2024 157.48 cm 36.6 kg/m2 04271.47 g BRYAN L'HEUREUX [facility] 02/24/2024 13:24:55 Date Recorded Body height Body mass index (BMI) Body weight Provider Name and Address Organization Details Last Updated DateTime 03/02/2024 157.48 cm 36.6 kg/m2 49871.47 g Samir Galvez PA-C [address], [place], [address], [place] [facility] 03/02/2024 13:33:07 Social History Question Answer Notes LastModified by Organizat ion Details LastModified Time Tobacco Smoking Status Current Every Day Smoker BRYAN PEREZ [place] [facility] 02/17/2024 13:51:41 What Is Your Relationship Status? [...] Thyroid Problems N COPD N Pacemaker N Kidney/Bladder Problems N Anemia N Vascular Disease N Gastrointestinal Disease N Heart Attack ([place]) N Diabetes Y Autoimmune disease N Bleeding [...] SNOMED-CT Code Diagnosis ICD10 Code Diagnosis Note [id number] NADIRA Velez [address] [place] [address] 02/17/2024 13:29:38 02/17/2024 14:18:42 Osteoarthritis of right knee joint 8555199595 27293 M17.11 [id number] NADIRA Velez [address] [place] [address] 02/24/2024 13:07:33 02/24/2024 13:43:51 Osteoarthritis of right knee joint 1835009609 74852 M17.11 [id number] NADIRA Velez [address] [place] [address] 03/02/2024 13:25:19 03/23/2024 10:24:40 Osteoarthritis of right knee joint 3165236641 72229 M17.11 Health Concerns Section Related Observation LastModified by Organization Detai ls LastModified Time None Recorded Concern Status LastModified by Organization Details LastModified Time None Recorded Advance Directives Directive None Recorded Payers Encounter Date Sequence Insurance Name Policy Number Policy Garduno Covered Member ID Garduno Member ID Guarantor Name 02/17/2024 2 [facility] 1 (MEDICARE SUPPLEMENT) [id number] 1 Maddy A A Diane [id number] Maddy A Diane 02/17/2024 1 [place] [employer] Maddy A Diane [id number] Maddy A Diane 02/24/2024 2 [facility] - PLAN 1 (MEDICARE SUPPLEMENT) [id number] 1 Maddy A A Diane [id number] Maddy A Diane 02/24/2024 1 [place] Maddy A Diane [id number] Maddy A Diane 03/02/2024 2 [facility] - PLAN 1 (MEDICARE SUPPLEMENT) [id number] 1 Maddy A A Diane [id number] Maddy A Diane 03/02/2024 1 [place] Maddy A Diane [id number] Maddy A Diane Notes Date Note Type Note Provider Name and Address Organization Details Recorded Time 02/17/2024 text/html I am seeing the patient today under the supervision of Dr. Sanders who is available but did not see the patient Samir Galvez PA-C [address], [place], [address], [place] [facility] 02/17/2024 13:56:20 02/24/2024 text/html I am seeing the patient today under the supervision of {{ Dr. Sanders#}} who was available but who did not see the patient. Samir Galvez PA-C [address], [place], [address], [facility] 02/24/2024 13:37:10 03/02/2024 text/html I am seeing the patient today under the supervision of Dr. Sanders who was available but did not see the patient. Samir Galvez PA-C [address], [place], [address], [facility] 03/02/2024 13:49:09 OBGyn Episode No OBEpisode recorded.
== END 2025-04-03 13:40 | disposition home or self-care (01) ==
LOC: HO.HMCFM 13:06
PROVIDERS: PCP Internal Medicine; Visit Provider Internal Medicine
DX: J98.8 Other specified respiratory disorders (principal); I10 Essential (primary) hypertension; F51.01 Primary insomnia; E11.65 Type 2 diabetes mellitus with hyperglycemia

== ENCOUNTER → 2025-04-03 13:05 | Outpatient (BNVA) | payer MEDICARE, OTHER, SELFPAY | PROVIDERS: PCP Internal Medicine; Visit Provider Internal Medicine | DX: J98.8 Other specified respiratory disorders (principal); I10 Essential (primary) hypertension; F51.01 Primary insomnia; E11.65 Type 2 diabetes mellitus with hyperglycemia; Z79.899 Other long term (current) drug therapy | CPT/HCPCS: 99212 ==

== ENCOUNTER 2025-08-16 07:29 | Outpatient (REF) | payer MEDICARE, OTHER, SELFPAY ==
--- OUTSIDE RECORDS SUMMARY | 2025-08-16 07:32 | XMS_ITS | Clinical Summary ---
Author Organization [facility] Address [address] [place] [address] Care Team Providers Care Shock Absorber Installer Name Role Phone Ranjana Arora MD Primary Care Provider [phone] Surgical History Surgery Date Site/Laterality Comments APPENDECTOMY 1974 PROCEDURE: HISTORICAL APPENDECTOMY KNEE ARTHROSCOPY W/ DEBRIDEMENT PROCEDURE: ID ARTHRS KNEE DEBRIDEMENT/SHAVING ARTCLR CRTLG; COMMENT: 2 surgeries, right TUBAL LIGATION 1991 PROCEDURE: HISTORICAL TUBAL LIGATION OTHER SURGICAL HISTORY PROCEDURE: CHG ANGRPH CATH F-UP STD TCAT OTHER THAN THROMBYLSIS OTHER SURGICAL HISTORY PROCEDURE: ID CAUTERY CERVIX CRYOCAUTERY INITIAL/REPEAT; COMMENT: in her [...] 10/11/2006 DX:Obstructive chronic bronc hitis without exacerbation ([facility]); COMMENT: smokes 1ppd for 20 years, inhalers [...] 2002 Zoster Vaccines (1 of 2) 2002 Depression Screening 11/22/2024 COVID-19 Vaccine (1 - 2023-2 5 season) 2025 Influenza Vaccine (#1) 2025 7, 10/11/2006 RSV Immunization Adult Patients (1 - [...] age to complete this topic Care Teams Shock Absorber Installer Relationship Specialty Start Date End Date Ranjana Arora MD PCP - General 06/28/23
--- OUTSIDE RECORDS SUMMARY | 2025-08-16 07:32 | XMS_ITS | Data Portability ---
Author Organization [facility], [facility] Address [address] [place] [address] Care Team Providers Care Drip Molder Name Role Phone GeetaJOHN DANNY Primary Care Provider Assessment No assessment recorded. Plan of Treatment Reminders Order Date Submit Date Provider Last Modified By Organization Details Last Modified Time Details Appointments None recorded. Lab None recorded. Referral None recorded. Procedures None recorded. Surgeries None recorded. Imaging US, duplex, venous, lower extremity - r/o DVT ?ruptured bakers cyst 2023 024 cstamand [facility] [place], [address] [facility], [place], [address], 10:24:40 Medication Orders None recorded. Patient TargetsNo [...] Address Organization Details Recorded Time No complaints [id number] Active Status: 'I'; Not Available [employer] 09:12:46 Idiopathic osteoarthri tis 768596288 Active 2016 Problem Code: M18.12; Problem Code Type: ICD-10; Status: 'A'; Not Available [facility] 10:56:47 Problem Notes None recorded. Procedures Surgical History Date Name Laterality Status Provider Name and Address Organization Details Recorded Time 4 TriVisc Knee Injection completed Samir Galvez PA-C [address], [place], [address], [facility] 03/02/2024 08:50:14 4 TriVisc Knee Injection completed Samir Galvez PA-C [address], [place], [address], [facility] 02/24/2024 08:02:48 4 TriVisc Knee Injection completed Samir Galvez PA-C [address], [place], [address], [facility] 02/17/2024 06:33:00 Imaging Results None recorded. Procedure Notes None recorded. Medical Equipment None Reported. Allergies Allergen ID Allergen Name Allergen Category Reaction Reaction Severity Criticality Documentation Date Start Date Code Code System Note Provider Name and Address Organization Details Recorded Time 121566 tetracycl ine hydrochlo ride medicatio n Not available Not available Not available 01/24/20242006 43647 6 RxNorm Aller gyRea ction : 'Skin React ion'; Not Available [facility] 15:27:02 976076 Product containin g penicilli n (product) medicatio n Not available Not available Not available 02/17/2024 38033 8001 SNOMED KAYLIA L'HEUREUX null, [facility] 13:48:49 206392 Substance with sulfonami de structure and antibacte rial mechanism of action (substanc e) medicatio n Not available Not available Not available 02/17/2024 57396 8003 SNOMED KAYLIA L'HEUREUX null, [facility] 13:48:58 031152 codeine medicatio n Not available Not available Not available 02/17/2024 2670 RxNorm BRYAN PEREZ [place], [place] [facility] 4 13:49:16 Medications Name Sig Start Date Stop [...] Updated DateTime 02/17/2024 157.48 cm 36.6 kg/m2 72848.47 g KAYLIA L'HEUREUX [facility] 02/17/2024 13:48:16 Date Recorded Body height Body mass index (BMI) Body weight Provider Name and Address Organization Details Last Updated DateTime 02/24/2024 157.48 cm 36.6 kg/m2 44430.47 g KAYLIA L'HEUREUX [facility] 02/24/2024 13:24:55 Date Recorded Body height Body mass index (BMI) Body weight Provider Name and Address Organization Details Last Updated DateTime 03/02/2024 157.48 cm 36.6 kg/m2 31194.47 g Samir Galvez PA-C [address] [facility] [address], [place], [address], [facility] 03/02/2024 13:33:07 Social History Question Answer Notes LastModified by Organizat ion Details LastModified Time Tobacco Smoking Status Current Every Day Smoker KAYLIA L'HEUREUX null, [place] [facility] 02/17/2024 13:51:41 What Is Your Relationship Status? [email or web address] Information not available 02/17/2024 How Much Tobacco Do You Smoke? 1 PPD [email or web address] Information not available 02/17/2024 Sex: Unknown Functional [...] Disease N Gastrointestinal Disease N Heart Attack ([place]) N Diabetes Y Autoimmune disease N Bleeding [...] Diagnosis SNOMED-CT Code Diagnosis ICD10 Code Diagnosis IMO Codes Diagnosis Note [id number] NADIRA Velez [address] [place] [address] 02/17/2024 13:29:38 02/17/2024 14:18:42 Osteoarthritis of right knee joint 5416294680 94804 M17.11 [id number] NADIRA Velez [address] [place] [address] 02/24/2024 13:07:33 02/24/2024 13:43:51 Osteoarthritis of right knee joint 5186765146 74553 M17.11 [id number] NADIRA Velez [address] [place] [address] 03/02/2024 13:25:19 03/23/2024 10:24:40 Osteoarthritis of right knee joint 2529636817 02025 M17.11 Health Concerns Section Related Observation LastModified by Organization Detai ls LastModified Time None Recorded Concern Status LastModified by Organization Details LastModified Time None Recorded Advance Directives Directive None Recorded Payers Insurance Date Sequence Insurance Name Policy Number Policy Garduno Covered Member ID Garduno Member ID Guarantor Name 03/23/2024 2 [facility] - PLAN 1 (MEDICARE SUPPLEMENT) [id number] 1 Maddy Salguero Diane [id number] Maddy Salguero Diane 03/08/2024 1 [place] [facility] [employer] Maddy Salguero Diane [id number] Maddy Salguero Diane Notes Date Note Type Note Provider Name and Address Organization Details Recorded Time 02/17/2024 text/html I am seeing the patient today under the supervision of Dr. Sanders who is available but did not see the patient Samir Galvez PA-C [address] [facility] [place], [place], [address], [facility] 02/17/2024 13:56:20 02/24/2024 text/html I am seeing the patient today under the supervision of Dr. Sanders who was available but who did not see the patient. Samir Galvez PA-C [address], [place], [address], [facility] 02/24/2024 13:37:10 03/02/2024 text/html I am seeing the patient today under the supervision of Dr. Sanders who was available but did not see the patient. Samir Galvez PA-C [address], [place], [address], [facility] 03/02/2024 13:49:09 OBGyn Episode No OBEpisode recorded.
[2025-08-16 07:53] LABS: MANUAL DIFF FLAG NO
[2025-08-16 08:25] LABS: Hematocrit 40.8 % (37.0-47.0); Hemoglobin 13.8 g/dl (12.0-16.0); Imm Gran Abs Auto 0.02 X10*3/uL (0.00-0.03); Imm Gran Pct Auto 0.3 % (0.0-0.4); Lymphocytes Absolute Auto 2.6 X10*3/uL (1.2-4.9); Mean Corpuscular HGB Conc 33.8 g/dl (31.0-35.0); Mean Corpuscular Hemoglobin 29.7 pg (27.0-33.0); Mean Corpuscular Volume 87.7 fL (80.0-98.0); NRBC Abs Auto 0.000 X10*3/uL (0.0-0.012); NRBC Pct Auto 0.0 /100WBC (0.0-0.2); Platelet Count 252 X10*3/uL (160-400); Red Blood Count 4.65 X10*6/uL (4.20-5.50); White Blood Count 6.9 X10*3/uL (4.8-10.8)
[2025-08-16 08:46] LABS: Alanine Aminotransferase 14 U/L (0-31); Albumin Level 4.2 g/dL (3.5-5.0); Alkaline Phosphatase 125 U/L (39-117); Anion Gap 10 (12-20); Aspartate Amino Transferase 26 U/L (5-31); Blood Urea Nitrogen 20 mg/dL (9-16); Calcium 9.3 mg/dL (8.4-10.2); Carbon Dioxide 32 mmol/L (22-29); Chloride 105 mmol/L (96-108); Estimated Glomerular Filt Rate 56; Potassium 3.5 mmol/L (3.3-5.1); Sodium 143 mmol/L (135-145); Total Protein 6.8 g/dL (6.5-8.0)
[2025-08-16 10:27] LABS: Hemoglobin A1C 185.1989 umol/L; Total Hemoglobin (HGBA1C) 3580.0607 umol/L
== END 2025-08-16 07:30 | disposition home or self-care (01) ==
LOC: HO.LAB 07:29
PROVIDERS: PCP Internal Medicine; Visit Provider Internal Medicine
DX: E11.65 Type 2 diabetes mellitus with hyperglycemia (principal)
CPT/HCPCS: 36415; 80053; 83036; 85025

== ENCOUNTER 2025-08-17 13:45 | Outpatient (AMB) | payer MEDICARE, OTHER, SELFPAY ==
--- NOTE | 2025-08-17 13:48 | A.OFFPC_ITS ---
Vital Signs 08/17/25 13:52 Height 5 ft 2 in Weight 246 lb 2 oz BMI 45.0 BP 116/72 Blood Pressure Location Rt brachial Position Sitting Respiration 24 H Pulse 73 Pulse Source Pulse Oximeter Temp 98.3 F Temp Source Oral Pulse Oximetry (%) 93 Oxygen Delivery Method Room Air Intake Visit Reasons: DM Intake Note: Diabetes follow up. Has bronchitis. fluid retention in legs. Business Transformation Consultant Required: No Allergies codeine Allergy (Severe, Verified 08/17/25 13:51) n/v doxycycline Allergy (Unknown, Verified 08/17/25 13:51) Hives nitrofurantoin (From Macrodantin) Allergy (Unknown, Verified 08/17/25 13:51) Hives Penicillins Allergy (Unknown, Verified 08/17/25 13:51) Hives Sulfa (Sulfonamide Antibiotics) Allergy (Unknown, Verified 08/17/25 13:51) Hives tetracycline Allergy (Unknown, Verified 08/17/25 13:51) Unknown bee stings Allergy (Unknown, Uncoded 08/17/25 13:51) Unknown Tobacco use date assessed: 08/17/25 Fall risk assessment: No Falls in past year Last assessed Fall Risk: 08/17/25 Dental Screening Dental Screen Date: 04/03/25 HPI HPI Comments History of Present Illness Details The patient is a 74 year old female with a past medical history of hyperlipidemia, hypertension, diabetes, thyroid nodule, GERD, ?barretts, COPD presenting for follow up Diabetes: A1C 08/16/25-6.9% from 7.5 from 7.3%. On glipizie 5mg daily and actos- she has gained a lot of weight. She has been trying to eat healthy and stay active. Intolerant to metformin, ozempic. CV: On imdur, furosemide, amlodipine, atorvastatin. Denies chest pain, palpitations. COPD: increased wheezing. request dov -says this has worked for her in the past. She declines pulmonary consult GI: History of Barretts. Follows [facility]. Insomnia: Ongoing. zolpidem was working seems to have stopped working. Has tried trazodone. Failed lunesta. Temazepam was ordered but not filled by pharmacy Ongoing low back pain. +bilateral foot pain. Right shoulder pain following fall. Following with [facility]. Stable Colon 3 year 05/18/2024, 08/12-[facility] Mammo: ordered ROS see HPI PHYSICAL EXAM: GENERAL: Alert and oriented x 3. NAD EYES: EOMI. Anicteric. HENT: Moist mucous membranes. No scleral icterus. No cervical lymphadenopathy. LUNGS: Bilateral scattered wheeze CARDIOVASCULAR: Regular rate and rhythm. No murmur. No JVD. ABDOMEN: Soft, non-tender +bs EXTREMITIES: No edema. Non-tender. SKIN: No rashes or lesions. Warm. NEUROLOGIC: No focal neurological deficits. CN II-XII grossly intact PSYCHIATRIC: Cooperative. Appropriate mood and affect [facility] Medical History (Updated 08/17/25 @ 15:41 by Ranjana Arora MD) Vitamin D deficiency Uninodular goiter Type 2 diabetes mellitus Polyp of sigmoid colon Olecranon bursitis, left elbow Obesity, Class I, BMI 30-34.9 Nicotine dependence Insomnia HTN (hypertension) Hypercholesteremia Gastroesophageal reflux disease Gallstones Fibromyalgia Chronic obstructive lung disease Yo's esophagus Acquired spondylolisthesis Family History Brother Substance use Mother Multiple myeloma TIA (transient ischemic attack) Father TIA (transient ischemic attack) CAD (coronary artery disease) Sister Hepatitis Social History Housing: House Alcohol intake: never Patient Tobacco Use Status: Current someday Tobacco user Tobacco use type: Cigarette Cigarette Packs Per Day: 0.5 Years Smoked: 30 e-Cigarette/Vaping Use: Never Used Second Hand Smoke Exposure: No Substance Use Type: Marijuana service: Yes Current occupational status: employed and retired Cognitive needs: No Hearing needs: No Vision needs: Yes (glasses) Questionnaire Thrive Questionnaire Date Thrive assessed: 12/26/24 I am a: Patient What is your living situation today?: I have a steady place to live Within the past 12 months, did the food you bought not last and you didn't have the money to get more?: Never true Within the past 12 months, did you worry whether your food would run out before you got money to buy more?: Never true Do you have trouble paying for medicines?: Yes Do you have trouble getting transportation to medical appointments?: No Do you have trouble paying your heating and electricity bill?: No Do you have trouble taking care of your child, family member or friend?: No Do you have trouble with day-to-day activities such as bathing, preparing meals, shopping, managing finances, etc.?: Yes Are you currently unemployed and looking for a job?: No Are you interested in more education?: No Please select the resources that you would like help with: Paying for medicine Currently or been in a relationship where the following occur: No concerns reported THRIVE Score: 0 KENDRA-7 AMB Questionnaire KENDRA-7 Date KENDRA - 7 assessed: 12/29/24 Source: Developed by Drs. Matthew Peterson, Zoila Cifuentes, Eleuterio Quiros and colleagues, with an educational ely from [employer]. Physical exam (Primary Care) Vital Signs: Last Vital Signs Temp 98.3 F 08/17/25 13:52 Pulse 73 08/17/25 13:52 Resp 24 H 08/17/25 13:52 BP 116/72 08/17/25 13:52 Pulse Ox 93 08/17/25 13:52 Oxygen Delivery Method Room Air 08/17/25 13:52 BMI result Body Mass Index 45.0 Tobacco/Smoking Status: Tobacco use Status Tobacco use date assessed 08/17/25 08/17/25 13:55 Patient Tobacco Use Status Current someday Tobacco 08/17/25 13:50 Tobacco use type Cigarette 08/17/25 13:50 e-Cigarette/Vaping Use Never Used 08/17/25 13:50 Thrive Assessment: Date of Thrive Assessment Date Thrive assessed 12/26/24 08/17/25 13:50 Currently or been in a relationship where the following occur: No concerns reported Coding Level of Care Code Est Pt Level 4 (98827) Complex EM visit Add On G2211 Diagnoses Primary hypertension I10 Hypertension type: primary hypertension Type 2 diabetes mellitus with hyperglycemia, without long-term current use of insulin E11.65 Diabetes mellitus type: type 2 Diabetes mellitus detention insulin use: without predatory animal exterminator use Diabetes mellitus complication status: with hyperglycemia Chronic obstructive pulmonary disease with acute exacerbation J44.1 COPD type: COPD with acute exacerbation Primary insomnia F51.01 Insomnia type: primary Assessment & Plan Assessment & Plan (1) HTN (hypertension): Code(s): I10 - Essential (primary) hypertension Category: Medical Qualifiers: Hypertension type: primary hypertension Qualified Code(s): I10 - Essential (primary) hypertension (2) Diabetes: Code(s): E11.9 - Type 2 diabetes mellitus without complications Category: Medical Qualifiers: Diabetes mellitus type: type 2 Diabetes mellitus detention insulin use: without detention use Diabetes mellitus complication status: with hyperglycemia Qualified Code(s): E11.65 - Type 2 diabetes mellitus with hyperglycemia (3) Chronic obstructive lung disease: Code(s): J44.9 - Chronic obstructive pulmonary disease, unspecified Category: Medical Qualifiers: COPD type: COPD with acute exacerbation Qualified Code(s): J44.1 - Chronic obstructive pulmonary disease with (acute) exacerbation (4) Insomnia: Code(s): G47.00 - Insomnia, unspecified Category: Medical Qualifiers: Insomnia type: primary Qualified Code(s): F51.01 - Primary insomnia Plan Diabetes-controlled. unfortunately has gained a lot of weight on actos so will max her glipizide and try off the actos for 3 months Insomnia-temazepam resent COPD with exacerbation. Take 5 days of prednisone. cipro ordered. recommend pulm-declined. Stop smoking. Add symbicort. Ventolin prn Orders: Orders MM tomosynthesis screening Today Z12.31 - Encounter for screening mammogram for malignant neoplasm of breast Medications: New ciprofloxacin HCl (Cipro) 500 mg PO BID 20 tabs 0RF albuterol sulfate 90 mcg/actuation (Ventolin HFA) 2 puffs inhalation Q4-6H PRN 1 ea 0RF shortness of breath or wheezing budesonide-formoterol 160-4.5 mcg/actuation (Symbicort) 2 puffs inhalation BID 10.2 grams 3RF Changed From temazepam 15 mg PO BEDTIME PRN 90 caps 1RF sleep To temazepam patient may pay out of pocket 15 mg PO BEDTIME PRN 30 caps 1RF sleep From glipizide ER 5 mg PO DAILY 90 tabs 3RF To glipizide ER 10 mg (2 x 5 mg) PO BID 360 tabs 3RF Discontinued duloxetine Discontinued Reason: Doctor's Order 60 mg PO DAILY 90 days 90 caps 3RF levofloxacin Discontinued Reason: Doctor's Order 750 mg PO DAILY 5 tabs 0RF On Hold pioglitazone Hold Comment: Dose Change TAKE 1 TABLET BY MOUTH EVERY DAY 90 tabs 3RF
[2025-08-17 13:52] VITALS: BP 116/72; PULSE 73; RESP 24; TEMP 36.8; O2SAT 93; BMI 45.0
--- OUTSIDE RECORDS SUMMARY | 2025-08-17 14:55 | XMS_ITS | Clinical Summary ---
Author Organization [facility] Address [address] [place] [address] Care Team Providers Care Process Excellence Manager Name Role Phone Ranjana Arora MD Primary Care Provider [phone] Surgical History Surgery Date Site/Laterality Comments APPENDECTOMY 1974 PROCEDURE: HISTORICAL APPENDECTOMY KNEE ARTHROSCOPY W/ DEBRIDEMENT PROCEDURE: TN ARTHRS KNEE DEBRIDEMENT/SHAVING ARTCLR CRTLG; COMMENT: 2 surgeries, right TUBAL LIGATION 1991 PROCEDURE: HISTORICAL TUBAL LIGATION OTHER SURGICAL HISTORY PROCEDURE: CHG ANGRPH CATH F-UP STD TCAT OTHER THAN THROMBYLSIS OTHER SURGICAL HISTORY PROCEDURE: [place] CAUTERY CERVIX CRYOCAUTERY INITIAL/REPEAT; COMMENT: in her [...] 10/11/2006 DX:Obstructive chronic bronc hitis without exacerbation ([facility]); COMMENT: smokes 1ppd for 20 [...] age to complete this topic Care Teams Process Excellence Manager Relationship Specialty Start Date End Date Ranjana Arora MD PCP - General 06/28/23
== END 2025-08-17 14:12 | disposition home or self-care (01) ==
LOC: HO.HMCFM 13:46
PROVIDERS: PCP Internal Medicine; Visit Provider Internal Medicine
DX: I10 Essential (primary) hypertension (principal); E11.65 Type 2 diabetes mellitus with hyperglycemia; J44.1 Chronic obstructive pulmonary disease with (acute) exacerbation; F51.01 Primary insomnia

== ENCOUNTER → 2025-08-17 13:45 | Outpatient (BNVA) | payer MEDICARE, OTHER, SELFPAY | PROVIDERS: PCP Internal Medicine; Visit Provider Internal Medicine | DX: I10 Essential (primary) hypertension (principal); E11.9 Type 2 diabetes mellitus without complications; J44.1 Chronic obstructive pulmonary disease with (acute) exacerbation; F51.01 Primary insomnia; M54.50 Low back pain, unspecified; M79.672 Pain in left foot; M79.671 Pain in right foot; M25.511 Pain in right shoulder; Z91.81 History of falling; Z79.84 Long term (current) use of oral hypoglycemic drugs; Z79.899 Other long term (current) drug therapy | CPT/HCPCS: 99212 ==